=== PATIENT | female | born 1970 | race Caucasian/White ===

== ENCOUNTER 2017-05-18 13:54 | Emergency (ER) | payer BC ==
[2017-05-18 14:02] VITALS: RESP 18
[2017-05-18] MEDS ORDERED: LORazepam 2 MG/ML INJ IVP ONE (14:11)
--- NOTE | 2017-05-18 14:15 | EDPHY ---
H & P Time Seen by Provider: 05/18/17 14:12 HPI/ROS: HPI: This is a 47-year-old female who presents with Chief Complaint: Dyspnea Location: Chest Quality: Dyspnea Duration: 1-3 hours Signs and Symptoms: No palpitation, + anxiety, no lower extremity swelling, no chest pain, no fever, no cough, no chills Timing: Sudden Severity: Moderate Context: The patient is here visiting from [facility] and in [place] at the [facility]. She has been here for few days reports that she woke this morning feeling anxious and not being able to catch her breath. She states that she has a history of anxiety attacks and this is similar to it. She does not have any anxiolytics here with her. She has a history of mitral valve prolapse; no cardiac history. Last menstrual period was 3 weeks ago. Modifying Factors: Deep breathing techniques tried and no relief Comment: ROS: Eyes: No blurred vision Respiratory: + shortness of breath, no cough Cardiovascular: No chest pain Gastrointestinal: No nausea, no vomiting no diarrhea Genitourinary: No dysuria Extremities: No myalgias Neurologic: No weakness, no numbness Skin: No rashes Hematologic: No bruising, no bleeding MEDICAL/SURGICAL HISTORY: Anxiety. Does not take any regular medications. Bilateral knee arthroscopy, tonsillectomy, . Social History: . Smoking Status: Never smoked Physical Exam: CONSTITUTIONAL: Moderately anxious pleasant and polite adult white female, awake and alert, no obvious distress HEENT: Atraumatic and normocephalic, PERRL, EOMI. Tympanic membranes clear. Oropharynx clear, no exudate and moist pink mucosa. Airway patent. NECK: no JVD, No lymphadenopathy. No meningismus. Cardiovascular: Normal S1/S2, regular rate, regular rhythm, without murmur rub or gallop. PULMONARY/CHEST: Symmetrical and nontender. Clear to auscultation bilaterally. Good air movement. No accessory muscle usage. ABDOMEN: Soft, nondistended, nontender, no rebound, no guarding, no peritoneal signs, no masses or organomegaly. No CVAT. EXTREMITIES: 2/2 pulses, no deformities, no clubbing, no cyanosis or edema. Negative Homans sign. NEUROLOGICAL: no focal neuro deficits. GCS 15. SKIN: Warm and dry, no erythema. no rash. Good capillary refill. Constitutional: Initial Vital Signs Temperature (C) 36.7 C 05/18/17 13:58 Heart Rate 82 05/18/17 13:58 Respiratory Rate 18 05/18/17 13:58 Blood Pressure 110/75 05/18/17 13:58 O2 Sat (%) 100 05/18/17 13:58 O2 Delivery Mode Room Air Allergies/Adverse Reactions: Iodine and Iodide Containing Produc Allergy (Mild, Verified 05/18/17 14:02) nausea Home Medications: Medication Instructions Recorded NK [No Known Home Meds] 05/18/17 Medical Decision Making - Diagnostics EKG Interpretation: 12 lead EKG: Indication: dyspnea Rhythm: Normal sinus rhythm, rate 64 bpm [place]: Normal Intervals: Normal QRS: Normal ST segments: Normal INTERPRETATION: Normal EKG The 12 lead EKG was interpreted by myself. Imaging Results: Imaging Impressions Chest X-Ray 05/18/17 14:11 Impression: No acute thoracic abnormality. ED Course/Re-evaluation: EKG, chest x-ray, labs, IV Ativan ordered No hypoxia or respiratory distress noted. Chest x-ray my read shows no effusion, no pneumothorax, no opacity. No signs of pulmonary embolism, arrhythmia, congestive heart failure, acute coronary syndrome Symptoms completely resolved with IV Ativan; suspect anxiety component Differential Diagnosis: Shortness of breath including but not limited to pulmonary infectious process, COPD, asthma, pulmonary embolus and congestive heart failure. - Data Points Laboratory Results: Laboratory Results 05/18/17 14:30 05/18/17 14:30 05/18/17 05/18/17 05/18/17 14:30 14:30 14:30 WBC 9.51 10^3/uL H 10^3/uL (3.80-9.50) RBC 4.46 10^6/uL 10^6/uL (4.18-5.33) Hgb 12.8 g/dL g/dL (12.6-16.3) Hct 37.5 % L % (38.0-47.0) MCV 84.1 fL fL (81.5-99.8) MCH 28.7 pg pg (27.9-34.1) MCHC 34.1 g/dL g/dL (32.4-36.7) RDW 14.1 % % (11.5-15.2) Plt Count 270 10^3/uL 10^3/uL (150-400) MPV 11.6 fL fL (8.7-11.7) Neut % (Auto) 78.9 % H % (39.3-74.2) Lymph % (Auto) 12.7 % L % (15.0-45.0) [place] % (Auto) 6.1 % % (4.5-13.0) Eos % (Auto) 0.7 % % (0.6-7.6) Baso % (Auto) 1.4 % % (0.3-1.7) Nucleat RBC Rel Count 0.0 % % (0.0-0.2) Absolute Neuts (auto) 7.50 10^3/uL H 10^3/uL (1.70-6.50) Absolute Lymphs (auto) 1.21 10^3/uL 10^3/uL (1.00-3.00) Absolute Monos (auto) 0.58 10^3/uL 10^3/uL (0.30-0.80) Absolute Eos (auto) 0.07 10^3/uL 10^3/uL (0.03-0.40) Absolute Basos (auto) 0.13 10^3/uL H 10^3/uL (0.02-0.10) Absolute Nucleated RBC 0.00 10^3/uL 10^3/uL (0-0.01) Immature Gran % 0.2 % % (0.0-1.1) Immature Gran # 0.02 10^3/uL 10^3/uL (0.00-0.10) D-Dimer < 0.27 ug/mLFEU ug/mLFEU (0.00-0.50) Sodium 139 mEq/L mEq/L (134-144) Potassium 3.9 mEq/L mEq/L (3.5-5.2) Chloride 107 mEq/L mEq/L (97-110) Carbon Dioxide 19 mEq/l L mEq/l (22-31) Anion Gap 13 mEq/L mEq/L (8-16) BUN 12 mg/dL mg/dL (7-23) Creatinine 0.9 mg/dL mg/dL (0.6-1.0) Estimated GFR > 60 Glucose 94 mg/dL mg/dL (70-100) Calcium 10.3 mg/dL mg/dL (8.5-10.4) Troponin I < 0.012 ng/mL ng/mL (0.000-0.034) NT-Pro-B Natriuret Pep 61 pg/mL pg/mL (0-125) Medications Given: Discontinued Medications Lorazepam (Ativan Injection) 1 mg IVP EDNOW ONE Stop: 05/18/17 14:12 Last Admin: 05/18/17 14:37 Dose: 1 mg Departure - Departure Disposition: Home, Routine, Self-Care Clinical Impression: Anxiety disorder Qualifiers: Anxiety disorder type: generalized anxiety disorder Qualified Code(s): F41.1 - Generalized anxiety disorder Condition: Good Instructions: Anxiety (ED) Referrals: [facility] [Other] - 3-4 days, if not improved
--- NOTE | 2017-05-18 14:35 | CPEKG ---
Heart Rate: 64 RR Interval: 938 P-R Interval: 108 QRSD Interval: 96 QT Interval: 456 QTC Interval: 471 P [place]: 39 QRS [place]: 17 T Wave [place]: 49 EKG Severity - BORDERLINE ECG - EKG Impression: SINUS RHYTHM EKG Impression: SHORT KS INTERVAL, ACCELERATED AV CONDUCTION Electronically Signed By: Thompson Johnson 19-May-2017 14:55:25
[2017-05-18 14:40] LABS: % IMMATURE GRANULYOCYTES 0.2 % (0.0-1.1); ABSOLUTE IMMATURE GRANULOCYTES 0.02 10^3/uL (0.00-0.10); ADD DIFF? NO; ADD MORPH? NO; ADD SCAN? NO; ATYPICAL LYMPHOCYTE FLAG 10 (0-99); FRAGMENT RBC FLAG 30 (0-99); HEMATOCRIT 37.5 % (38.0-47.0); HEMOGLOBIN 12.8 g/dL (12.6-16.3); LEFT SHIFT FLG 0 (0-99); LIPEMIA HEMOLYSIS FLAG 90 (0-99); MEAN CELL HEMOGLOBIN 28.7 pg (27.9-34.1); MEAN CELL HEMOGLOBIN CONCENTR. 34.1 g/dL (32.4-36.7); MEAN CELL VOLUME 84.1 fL (81.5-99.8); MEAN PLATELET VOLUME 11.6 fL (8.7-11.7); PLATELET CLUMPS FLAG 20 (0-99); PLATELET COUNT 270 10^3/uL (150-400); RED BLOOD CELL COUNT 4.46 10^6/uL (4.18-5.33); RED CELL DISTRIBUTION WIDTH 14.1 % (11.5-15.2)
[2017-05-18 14:53] LABS: ANION GAP 13 mEq/L (8-16); CALCIUM 10.3 mg/dL (8.5-10.4); CARBON DIOXIDE 19 mEq/l (22-31); CHLORIDE 107 mEq/L (97-110); CREATININE 0.9 mg/dL (0.6-1.0); GLOMERULAR FILTRATION RATE > 60; GLUCOSE 94 mg/dL (70-100); POTASSIUM 3.9 mEq/L (3.5-5.2); SODIUM 139 mEq/L (134-144)
[2017-05-18 15:06] LABS: TROPONIN I < 0.012 ng/mL (0.000-0.034)
[2017-05-18 16:20] VITALS: BP 129/63; PULSE 80; TEMP 97.9; O2SAT 97
== END 2017-05-18 15:30 | disposition home or self-care (01) ==
DX: F41.1 Generalized anxiety disorder (principal)
CPT/HCPCS: 96374; J2060